=== PATIENT | male | born 1965 | race Caucasian/White ===

== ENCOUNTER 2023-10-25 08:57 | Emergency (ER) | payer BC ==
[2023-10-25] MEDS: Lidocaine 1% 10 ML MDV INJECT ONE (10:15)
== END 2023-10-25 10:48 | disposition home or self-care (01) ==
LOC: JD.ED 08:57
DX: S62.525B Nondisplaced fracture of distal phalanx of left thumb, initial encounter for open fracture (principal); W31.2XXA Contact with powered woodworking and forming machines, initial encounter
CPT/HCPCS: 12002; 73140-26-FA; 73140-FA; 99283; J3490